=== PATIENT | male | born 1980 | race Caucasian/White ===

== ENCOUNTER 2021-12-08 01:08 | Emergency (ER) | payer BC ==
[~2021-12-08] VITALS: Ht 172.7 cm; Wt 108.9 kg
--- NOTE | 2021-12-08 01:15 | NUR ---
BIBS FOR A SYNCOPAL EPISODE AT HOME. + N/V AND ABDOMINAL PAIN X 1 DAY. PATIENT ALERT AND ORIENTED X3. AMBULATORY BUT BROUGHT IN BY STRETCHER. IN BED 09 ON MONITOR AND POX.
--- NOTE | 2021-12-08 01:25 | NUR ---
BLOOD COLLECTEDF AND SENT TO LAB
[2021-12-08] MEDS ORDERED: IV NS 0.9% 1,000 ML BAG IV ONE (01:30)
[2021-12-08 01:43] LABS: BASOPHILS % (AUTO) 0.4 % (0.0-2.0); EOSINOPHILS % (AUTO) 1.8 % (0.0-6.0); HEMATOCRIT 46 % (39-51); LYMPHOCYTES # (AUTO) 2.1 K/uL (0.8-4.8); LYMPHOCYTES % (AUTO) 17.3 % (20.0-44.0); MEAN CORPUSCULAR HGB CONC 33 g/dl (31.0-36.0); MEAN CORPUSCULAR VOLUME 77 fL (80-96); MONOCYTES # (AUTO) 0.9 K/uL (0.1-1.30); MONOCYTES % (AUTO) 7.3 % (2.0-12.0); NEUTROPHILS % (AUTO) 73.2 % (43.0-81.0); PLATELET COUNT (AUTO) 318 K/uL (150-450); RED BLOOD CELL COUNT(AUTO) 5.92 MIL/uL (4.5-6.0); WHITE BLOOD COUNT (AUTO) 12.2 K/uL (4.3-11.0)
[2021-12-08 01:49] LABS: CALCIUM, SERUM 8.9 mg/dL (8.5-10.1); CREATININE 1.1 mg/dL (0.6-1.3)
[2021-12-08 02:12] VITALS: BP 139/84
[2021-12-08] MEDS ORDERED: ONDA4TAB11 PO (04:01)
[2021-12-08] MEDS ORDERED: LOPE2CAP PO (04:01)
--- NOTE | 2021-12-08 04:13 | NUR ---
Patient discharged to home in stable condition. Written and verbal after care instructions given. Patient verbalizes understanding of instruction.
== END 2021-12-08 04:13 | disposition home or self-care (01) ==
LOC: ER 01:13
DX: S00.212A Abrasion of left eyelid and periocular area, initial encounter (principal); R55 Syncope and collapse; E11.9 Type 2 diabetes mellitus without complications; X58.XXXA Exposure to other specified factors, initial encounter; Y93.89 Activity, other specified; Y92.89 Other specified places as the place of occurrence of the external cause; Y99.8 Other external cause status
CPT/HCPCS: 99285; 96360; 70450; 93005; 85025; 80048; 36415; J7030